=== PATIENT | male | born 2000 | race Caucasian/White ===

== ENCOUNTER 2023-03-02 11:14 | Outpatient (AMB) | payer OTHER, SELFPAY ==
--- NOTE | 2023-03-02 11:16 | A.OFFPC_ITS ---
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 He notes he was last evaluated by his former PCP a year and half ago. He does not recall the last time he had blood work done. He reports history of ADHD and notes was never treated. He states he does not want to treat his ADHD. He denies anxiety or depression. Not on prescription medications FH: No significant FH He reports very dry, peeling skin to his palms and soles of feet for the past 7 years. No itching. He has been using moisturizing lotions and Vaseline with minimal relief. He notes he has been smoking 2 blunts of marijuana dailhy for the past 3 years He states he vaped daily for 3 years and quit a week ago He states he has been drinking 2 shot glasses of vodka 2-3 times monthly for the past 1 year He notes that he is sexually active, in a monogamous relationship, and practices safe sex. [facility] Surgical History (Updated 03/02/23 @ 11:21 by Brett Carty CMA) No pertinent past surgical history Family History (Updated 03/02/23 @ 11:22 by Brett Carty CMA) Mother Mental health problem Father Mental health problem Other No pertinent family history Social History (Updated 03/02/23 @ 11:23 by Brett Carty CMA) Housing: Apartment Alcohol intake: current Alcohol intake frequency: a few times a month Alcohol type: hard liquor Patient Tobacco Use Status: Former Tobacco user (vape ) e-Cigarette/Vaping Use: Currently Using Substance Use Type: Marijuana service: No Current occupational status: employed Current occupation: [employer] Current occupational exposures/hazards: No Cognitive needs: No Hearing needs: No Vision needs: Yes Questionnaire PHQ-9 Over the last 2 weeks, how often have you been bothered by any of the following problems? 1. Little interest or pleasure in doing things: several days 2. Feeling down, depressed, or hopeless: not at all 3. Trouble falling or staying asleep, or sleeping too much: more than half the days 4. Feeling tired or having little energy: nearly every day 5. Poor appetite or overeating: not at all 6. Feeling bad about yourself - or that you are a failure or have let yourself or your family down: not at all 7. Trouble concentrating on things, such as reading the newspaper or watching television: not at all 8. Moving or speaking so slowly that other people could have noticed. Or the opposite - being so fidgety or restless that you have been moving around a lot more than usual: several days 9. Thoughts that you would be better off or of hurting yourself in some way: not at all Total score: 7 Depression Screening Interpretation: Positive 07756 - PHQ-9 Billing: Yes Source: Developed by Drs. Salo Garvin, Sofya Johnson, Yandel Dinh and colleagues, with an educational darwin from [employer]. Thrive Questionnaire Date Thrive assessed: 03/02/23 I am a: Patient What is your living situation today?: I have a steady place to live Within the past 12 months, did the food you bought not last and you didn't have the money to get more?: Never true Within the past 12 months, did you worry whether your food would run out before you got money to buy more?: Never true Do you have trouble paying for medicines?: No Do you have trouble getting transportation to medical appointments?: No Do you have trouble paying your heating and electricity bill?: No Do you have trouble taking care of your child, family member or friend?: No Do you have trouble with day-to-day activities such as bathing, preparing meals, shopping, managing finances, etc.?: No Are you currently unemployed and looking for a job?: No Are you interested in more education?: No Please select the resources that you would like help with: None Currently or been in a relationship where the following occur: no concerns reported AUDIT C Alcohol Use Questionnaire (AUDIT-C) 1. How often do you have a drink containing alcohol?: 2-4 times a month 2. How many drinks containing alcohol do you have on a typical day when you are drinking?: 1 or 2 3. How often do you have six or more drinks on one occasion?: Never Total Score: 2 VASQUEZ-7 AMB Questionnaire VASQUEZ-7 Date VASQUEZ - 7 assessed: 03/02/23 Feeling nervous, anxious, or on edge: 0 = Not at all Not being able to stop or control worryin = Not at all Worrying too much about different things: 0 = Not at all Trouble relaxin = Not at all Being so restless that it is hard to sit still: 0 = Not at all Becoming easily annoyed or irritable: 1 = Several days Feeling afraid as if something awful might happen: 0 = Not at all Total VASQUEZ-7 score (0-4 normal; 5-9 mild; 10-14 moderate; 15-21 severe): 1 Source: Developed by Drs. Salo Garvin, Sofya Johnson, Yandel Dinh and colleagues, with an educational darwin from [employer]. VASQUEZ-7 Assessment Billing VASQUEZ-7 Assessment Tool: VASQUEZ-7 Assessment 08455 Review of Systems Const Details: Denies chills, Denies fatigue, Denies fever(s), Denies headache(s) and Denies weakness HEENT Denies change in vision, Denies dizziness, Denies headache(s), Denies hearing loss, Denies nasal congestion, Denies sinus pain, Denies sinus pressure and Denies sore throat Card Denies chest pain, Denies lightheadedness, Denies dyspnea and Denies other (palpitations) Resp Denies cough, Denies dyspnea and Denies wheezing GI Denies abdominal pain, Denies melena, Denies hematochezia, Denies change in bowel habits, Denies dyspepsia and Denies nausea Denies hematuria and Denies dysuria Musc Denies abnormal gait, Denies myalgias, Denies arthralgias, Denies numbness and Denies tingling Skin/Breast Denies rash, Denies unusual bruising and Denies wounds Neuro Denies abnormal gait, Denies dizziness, Denies headache(s), Denies memory loss, Denies numbness, Denies Sensory deficit (Neuro), Denies tingling and Denies weakness Psych Denies anxiety, Denies depression and Denies memory loss Endo Denies cold intolerance, Denies fatigue, Denies heat intolerance, Denies polydipsia and Denies polyuria Zelal[place]/Lymph Denies easy bleeding and Denies easy bruising Aller/Immun Denies wheezing Physical exam (Primary Care) Vital Signs: Last Vital Signs Pulse 57 03/02/23 11:19 BP 118/68 03/02/23 11:19 Pulse Ox 97 03/02/23 11:19 BMI result Body Mass Index 23.1 Tobacco/Smoking Status: Tobacco use Status Tobacco use date assessed 03/02/23 03/02/23 11:27 Patient Tobacco Use Status Former Tobacco user (vape ) 03/02/23 11:27 e-Cigarette/Vaping Use Currently Using 03/02/23 11:27 PHQ-9: PHQ-9 Score PHQ-9: Total score 7 03/02/23 12:08 Depression Screening Interpretation: Positive Thrive Assessment: Date of Thrive Assessment Date Thrive assessed 03/02/23 03/02/23 11:27 Currently or been in a relationship where the following occur: no concerns reported Const Other: General: no acute distress, well developed, alert and awake Nutritional Appearance: well nourished Orientation/consciousness: patient oriented x3 HENMT Head: Yes normocephalic and Yes atraumatic Ears: hearing grossly normal bilaterally and TM's normal bilaterally General nose exam: Normal external nose present and Normal nares present Mouth: Normal oral and palatal mucosa present and moist mucous membranes Teeth and gingiva: dentition normal Throat: Yes oropharynx normal Eyes Pupils: Equal, round and reactive pupils present and Pupil accommodation reflex normal EOM: EOMs intact bilaterally Neck Neck: Yes normal visual inspection, Yes no lymphadenopathy and Yes trachea midline Thyroid: Thyroid normal Carotids: no bruits Lymphatic: no lymphadenopathy noted Chest Chest palpation & inspection: normal inspection of the chest Resp Effort & Inspection: normal respiratory effort Auscultation: clear to auscultation bilaterally Cardio Rate: regular rate Rhythm: regular rhythm Heart sounds: S1 normal heart sound present, S2 normal heart sound present, no gallops, no murmurs and no rubs Bruits: no abdominal aortic bruits and no carotid bruits GI Palpation (GI): No Abdominal aortic bruit present, Soft to palpation, nontender, No hepatosplenomegaly present and No Rebound tenderness present Auscultation: normal bowel sounds General: Yes no CVA tenderness Back/Spine/Pelvis Back: no CVA tenderness Cervical Spine: cervical ROM normal and No Cervical spine tenderness Thoracic/Lumbar Spine: thoraco-lumbar ROM normal, No pain with thoraco-lumbar ROM, No thoracic spinal tenderness and No lumbar spinal tenderness Skin General: warm and dry. Normal skin color. Normal skin turgor. Very dry, peeling, callous skin to the palms and soles of feet, skin is intact, no overt infection Lesions: no lesions Rashes: no rashes Trauma: no lacerations or abrasions Wounds: no wounds Nails: normal Neuro General: patient oriented x3, gait normal and CN's II-XI intact bilaterally Cranial nerves: Yes Equal, round and reactive pupils present Cognition (Neuro): normal cognition Gait exam (Neuro): Normal gait present Motor exam (neuro): 5/5 motor strength present throughout Sensory Exam: No Sensory deficit (Neuro) Deep tendon reflexes (DTR's): Right patellar reflex intensity grade: 2+ and Left patellar reflex intensity grade: 2+ Extrem General: Yes normal to inspection, No edema and No calf tenderness Psych Appearance: grossly normal Affect: normal affect Attitude: cooperative Thought process: Normal thought process present Assessment and Plan Assessment & Plan (1) Normal physical examination, routine: Code(s): Z00.00 - Encounter for general adult medical examination without abnormal findings Plan: No significant physical restrictions or limitations noted Advised to get blood work done and schedule a telehealth visit for labs review Return with concerns or symptoms Verbalized understanding and agreed with treatment plan (2) Callus: Code(s): L84 - Corns and callosities Plan: Reports very dry, peeling skin to his palms and soles of feet for the past 7 years. No itching. He has been using moisturizing lotions and Vaseline with minimal relief. Very dry, peeling, callous skin to the palms and soles of feet, skin is intact, no overt infection Continue to apply moisturizer lotion Dermatology referral made Follow-up with worsening or new signs and symptoms Verbalized understanding and agreed with plan. (3) Laboratory tests ordered as part of a complete physical exam (CPE): Code(s): Z00.00 - Encounter for general adult medical examination without abnormal findings Plan: Fasting labs ordered as part of a complete physical exam. Advised to fast for at least 10 hours before getting labs drawn. May drink water Verbalized understanding and agreed with treatment plan. Orders: Orders Comprehensive [place]. Panel Fast Today Z00.00 - Encounter for general adult medical examination without abnormal findings Lipid Panel Today Z00.00 - Encounter for general adult medical examination without abnormal findings TSH reflex Free T4 Today Z00.00 - Encounter for general adult medical examination without abnormal findings Complete Blood Count Auto Diff Today Z00.00 - Encounter for general adult medical examination without abnormal findings UA CC w/rflx Micro + Cult Today Z00.00 - Encounter for general adult medical examination without abnormal findings Referrals Dermatology Referral L84 - Corns and callosities Coding Level of Care Code New Pt Level 3 (93250) New Pt Prev Care 18-39yr([id number] Diagnoses Normal physical examination, routine Z00.00 Callus L84 Laboratory tests ordered as part of a complete physical exam (CPE) Z00.00 Additional Codes VASQUEZ-7 Assessment Billing - VASQUEZ-7 Assessment Tool: VASQUEZ-7 Assessment 18722 ([id number])
[2023-03-02 11:19] VITALS: BP 118/68; PULSE 57; O2SAT 97; BMI 23.1
== END 2023-03-02 12:12 | disposition home or self-care (01) ==
PROVIDERS: PCP Nurse Practitioner Family; Visit Provider Nurse Practitioner Family
DX: Z00.00 Encounter for general adult medical examination without abnormal findings (principal); L84 Corns and callosities
CPT/HCPCS: 99385

== ENCOUNTER 2023-04-07 08:58 | Outpatient (REF) | payer OTHER, SELFPAY ==
[2023-04-07 11:26] LABS: MANUAL DIFF FLAG NO
[2023-04-07 11:38] LABS: Basophils Percent Auto 0.5 % (0-2); Eosinophils Absolute Auto 0.1 X10*3/uL (0.0-0.4); Eosinophils Percent Auto 1.9 % (0-4); Hematocrit 45.6 % (42.0-52.0); Hemoglobin 16.3 g/dl (14.0-18.0); Imm Gran Abs Auto 0.01 X10*3/uL (0.00-0.03); Imm Gran Pct Auto 0.2 % (0.0-0.4); Lymphocytes Percent Auto 33.4 % (20-40); Mean Corpuscular HGB Conc 35.7 g/dl (31.0-36.0); Mean Corpuscular Hemoglobin 30.6 pg (27.0-33.0); Mean Corpuscular Volume 85.6 fL (80.0-98.0); Mean Platelet Volume 10.7 fL (9.4-12.4); Monocytes Absolute Auto 0.6 X10*3/uL (0.1-1.2); Monocytes Percent Auto 9.3 % (2-11); Neutrophils Absolute Auto 3.2 x10*3/uL (2.0-8.3); Neutrophils Percent Auto 54.7 % (45-73); Platelet Count 213 X10*3/uL (160-400); Red Blood Count 5.33 X10*6/uL (4.60-5.80); Red Cell Distribution Width 11.9 % (11.0-16.0); White Blood Count 5.9 X10*3/uL (4.8-10.8)
[2023-04-07 12:29] LABS: Alanine Aminotransferase 11 U/L (0-40); Albumin Level 4.5 g/dL (3.5-5.0); Alkaline Phosphatase 77 U/L (39-117); Anion Gap 9 (12-20); Aspartate Amino Transferase 12 U/L (5-37); Bilirubin Total 0.7 mg/dL (0.0-1.0); Blood Urea Nitrogen 18 mg/dL (9-16); Calcium 9.5 mg/dL (8.4-10.2); Carbon Dioxide 27 mmol/L (22-29); Chloride 108 mmol/L (96-108); Cholesterol 189 mg/dL (<200); Estimated Glomerular Filt Rate > 60; Glucose Fasting 94 mg/dL (60-99); HDL Cholesterol 40 mg/dL (>40); LDL Cholesterol Calculated 135 mg/dL (<100); Potassium 4.2 mmol/L (3.3-5.1); Sodium 140 mmol/L (135-145); Total Protein 6.9 g/dL (6.5-8.0); Triglycerides 73 mg/dL (<150)
[2023-04-07 12:31] LABS: TSH reflex Free T4 0.52 uIU/mL (0.32-4.0)
== END 2023-04-07 08:59 | disposition home or self-care (01) ==
LOC: HO.WFDLDS 08:58
PROVIDERS: Visit Provider Nurse Practitioner Family
DX: Z00.00 Encounter for general adult medical examination without abnormal findings (principal)
CPT/HCPCS: 36415; 80053; 80061; 84443; 85025

== ENCOUNTER 2024-01-15 12:51 | Outpatient (AMB) | payer OTHER, SELFPAY ==
[2024-01-15 13:03] VITALS: PULSE 88; O2SAT 98; BMI 22.4
--- NOTE | 2024-01-15 13:03 | MHC.OFFWIV ---
Intake Vital Signs 01/15/24 13:03 Height 5 ft 9 in Weight 152 lb BMI 22.4 Pulse 88 Pulse Source Pulse Oximeter Pulse Oximetry (%) 98 Oxygen Delivery Method Room Air Intake Visit Reasons: Abcsess on groin Patient Tobacco Use Status: Former Tobacco user (vape ) Allergies No Known Allergies Allergy (Verified 01/15/24 13:03) Medication List - Last Reconciled 01/15/24 by JOEL Juarez No Known Home Meds Do you need a note to return to daycare/school/sports/work: No HPI HPI Comments History of Present Illness Details Here today with concerns of swelling of a right lymph node in his groin. Associated with mild discomfort. He noted this about 1 week ago. It has improved since onset with no treatment. He was in his normal state of health. Upon ROS when asked about fever he states that he had some fevers a few weeks ago without any other symptoms. And these resolved on their own. He reports normal urination. Denies any concern for STD exposure. Denies any abdominal symptoms. [facility] Surgical History (Updated 03/02/23 @ 11:21 by Brett Carty [facility]) No pertinent past surgical history Family History (Updated 03/02/23 @ 11:22 by Brett Carty CMA) Mother Mental health problem Father Mental health problem Other No pertinent family history Social History (Updated 03/02/23 @ 11:23 by Brett Carty CMA) Housing: Apartment Alcohol intake: current Alcohol intake frequency: a few times a month Alcohol type: hard liquor Patient Tobacco Use Status: Former Tobacco user (vape ) e-Cigarette/Vaping Use: Currently Using Substance Use Type: Marijuana service: No Current occupational status: employed Current occupation: [employer] Current occupational exposures/hazards: No Cognitive needs: No Hearing needs: No Vision needs: Yes Review of Systems Const All systems reviewed & are unremarkable except as noted in HPI and below Physical Exam Male genitals images: 1. 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 However he did not want his pants or underwear lowered for the exam. Therefore I did not do an exam of the skin or the genitals. I was able to palpate inguinal adenopathy on the right hand side which is shotty. He has 1 isolated lymph node that is larger however it is nontender with palpation. Assessment & Plan Assessment & Plan (1) Inguinal adenopathy: Comment: Affecting the right side that started 1 week ago. Improved since onset. This could be related to shaving and sweating given the hot weather conditions. Given he denies constitutional symptoms other than fevers which were a few weeks ago I have advised for supportive care. Watch and wait. If he develops any fever, urinary, abdominal symptoms he should seek further assistance. Otherwise reassured. Code(s): R59.0 - Localized enlarged lymph nodes Plan: . Patient Instructions: Affecting the right side that started 1 week ago. Improved since onset. This could be related to shaving and sweating given the hot weather conditions. Given he denies constitutional symptoms other than fevers which were a few weeks ago I have advised for supportive care. Watch and wait. If he develops any fever, urinary, abdominal symptoms he should seek further assistance. Otherwise reassured. Coding Level of Care Code Est Pt Level 3 (05536) Diagnoses Inguinal adenopathy R59.0
== END 2024-01-15 14:25 | disposition home or self-care (01) ==
PROVIDERS: PCP Nurse Practitioner Family; Visit Provider Nurse Practitioner Family
DX: R59.0 Localized enlarged lymph nodes (principal)
CPT/HCPCS: 99213

== ENCOUNTER 2024-07-22 10:34 | Outpatient (AMB) | payer OTHER, SELFPAY ==
--- NOTE | 2024-07-22 10:36 | A.OFFVIS_ITS ---
Intake Visit Reasons: Cancer screening Referral Allergies No Known Allergies Allergy (Verified 01/15/24 13:03) PFSH Surgical History (Updated 03/02/23 @ 11:21 by Brett Carty CMA) No pertinent past surgical history Family History (Updated 03/02/23 @ 11:22 by Brett Carty CMA) Mother Mental health problem Father Mental health problem Other No pertinent family history Social History (Updated 03/02/23 @ 11:23 by Brett Carty CMA) Housing: Apartment Alcohol intake: current Alcohol intake frequency: a few times a month Alcohol type: hard liquor Patient Tobacco Use Status: Former Tobacco user (vape ) e-Cigarette/Vaping Use: Currently Using Substance Use Type: Marijuana service: No Current occupational status: employed Current occupation: [employer] Current occupational exposures/hazards: No Cognitive needs: No Hearing needs: No Vision needs: Yes Coding
--- NOTE | 2024-07-22 10:38 | MHC.PC.OV ---
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 Allergies No Known Allergies Allergy (Verified 07/22/24 10:49) Medication List - Last Reconciled 07/22/24 by Juwan Parada CNP No Known Home Meds Tobacco use date assessed: 07/22/24 Dental Screening Dental Screen Date: 07/22/24 Did you have a dental visit in the last 12 months?: Yes Did you have a dental problem in the last 6 months where you did not have access to dental care?: No Was dental information given to patient?: Patient has dentist HPI HPI Comments History of Present Illness Details 24-year-old male presents with complaints of of a lumps to his left groin and scrotum which have been present for the past 1.5 - 2 weeks. He notes initially mild pain with palpation but completely resolved. No constitutional symptoms. No urinary symptoms. He was evaluated at [facility] walk-in on 01/15/2024 for right groin discomfort and was diagnosed with enlarged lymph node of the right groin; supportive care was recommended. He currently denies lumps to the right groin. [facility] Surgical History (Updated 03/02/23 @ 11:21 by Brett Carty CMA) No pertinent past surgical history Family History (Updated 03/02/23 @ 11:22 by Brett Carty CMA) Mother Mental health problem Father Mental health problem Other No pertinent family history Social History (Updated 03/02/23 @ 11:23 by Brett Carty CMA) Housing: Apartment Alcohol intake: current Alcohol intake frequency: a few times a month Alcohol type: hard liquor Patient Tobacco Use Status: Former Tobacco user (vape ) e-Cigarette/Vaping Use: Currently Using Second Hand Smoke Exposure: No Substance Use Type: Marijuana service: No Current occupational status: employed Current occupation: [employer] Current occupational exposures/hazards: No Cognitive needs: No Hearing needs: No Vision needs: Yes Questionnaire PHQ-9 Over the last 2 weeks, how often have you been bothered by any of the following problems? 1. Little interest or pleasure in doing things: not at all 2. Feeling down, depressed, or hopeless: not at all 3. Trouble falling or staying asleep, or sleeping too much: several days 4. Feeling tired or having little energy: several days 5. Poor appetite or overeating: not at all 6. Feeling bad about yourself - or that you are a failure or have let yourself or your family down: not at all 7. Trouble concentrating on things, such as reading the newspaper or watching television: not at all 8. Moving or speaking so slowly that other people could have noticed. Or the opposite - being so fidgety or restless that you have been moving around a lot more than usual: not at all 9. Thoughts that you would be better off or of hurting yourself in some way: not at all Total score: 2 Depression Screening Interpretation: Negative Depression Screening Done: Yes 32445 - PHQ-9 Billing: Yes Source: Developed by Drs. Salo Garvin, Sofya Johnson, Yandel Dinh and colleagues, with an educational darwin from [email or web address]. Thrive Questionnaire Date Thrive assessed: 07/22/24 I am a: Patient What is your living situation today?: I have a steady place to live Within the past 12 months, did the food you bought not last and you didn't have the money to get more?: Never true Within the past 12 months, did you worry whether your food would run out before you got money to buy more?: Never true Do you have trouble paying for medicines?: No Do you have trouble getting transportation to medical appointments?: No Do you have trouble paying your heating and electricity bill?: No Do you have trouble taking care of your child, family member or friend?: No Do you have trouble with day-to-day activities such as bathing, preparing meals, shopping, managing finances, etc.?: No Are you currently unemployed and looking for a job?: No Are you interested in more education?: Yes Please select the resources that you would like help with: None Currently or been in a relationship where the following occur: No concerns reported THRIVE Score: 0 AUDIT C Alcohol Use Questionnaire (AUDIT-C) 1. How often do you have a drink containing alcohol?: Never Total Score: 0 VASQUEZ-7 AMB Questionnaire VASQUEZ-7 Date VASQUEZ - 7 assessed: 07/22/24 Feeling nervous, anxious, or on edge: 0 = Not at all Not being able to stop or control worryin = Not at all Worrying too much about different things: 0 = Not at all Trouble relaxin = Not at all Being so restless that it is hard to sit still: 0 = Not at all Becoming easily annoyed or irritable: 0 = Not at all Feeling afraid as if something awful might happen: 0 = Not at all Total VASQUEZ-7 score (0-4 normal; 5-9 mild; 10-14 moderate; 15-21 severe): 0 Source: Developed by Drs. Salo Garvin, Sofya Johnson, Yandel Dinh and colleagues, with an educational darwin from [email or web address]. VASQUEZ-7 Assessment Billing VASQUEZ-7 Assessment Tool: VASQUEZ-7 Assessment 49321 Review of Systems Const Details: Const Denies chills, Denies fatigue, Denies fever(s), Denies headache(s) and Denies weakness ENT Denies dizziness and Denies headache(s) Card Denies chest pain, Denies lightheadedness, Denies dyspnea and Denies other (Palpitations) Resp Denies cough, Denies dyspnea, Denies wheezing and Denies other ( shortness of breath) GI Denies abdominal pain, Denies melena, Denies hematochezia, Denies change in bowel habits, Denies dyspepsia and Denies nausea Reports as per HPI Musc Denies abnormal gait, Denies myalgias, Denies arthralgias, Denies numbness and Denies tingling Skin/Breast Denies rash, Denies unusual bruising and Denies wounds Neuro Denies abnormal gait, Denies dizziness, Denies headache(s), Denies memory loss, Denies numbness, Denies Sensory deficit (Neuro), Denies tingling and Denies weakness Psych Denies anxiety, Denies depression, Denies memory loss Endo Denies cold intolerance, Denies fatigue, Denies heat intolerance, Denies polydipsia and Denies polyuria Aller/Immun Denies wheezing Physical exam (Primary Care) Vital Signs: Last Vital Signs Temp 98.6 F 07/22/24 10:44 Pulse 67 07/22/24 10:44 Resp 16 07/22/24 10:44 BP 125/68 07/22/24 10:44 Pulse Ox 98 07/22/24 10:44 Oxygen Delivery Method Room Air 07/22/24 10:44 BMI result Body Mass Index 22.8 Tobacco/Smoking Status: Tobacco use Status Tobacco use date assessed 07/22/24 07/22/24 10:45 Patient Tobacco Use Status Former Tobacco user (vape ) 07/22/24 10:40 e-Cigarette/Vaping Use Currently Using 07/22/24 10:40 PHQ-9: PHQ-9 Score PHQ-9: Total score 2 07/22/24 10:45 Depression Screening Interpretation: Negative Thrive Assessment: Date of Thrive Assessment Date Thrive assessed 07/22/24 07/22/24 10:45 Currently or been in a relationship where the following occur: No concerns reported Const Other: General: no acute distress and well developed Nutritional Appearance: well nourished Orientation/consciousness: patient oriented x3 HENMT Head: Yes normocephalic and Yes atraumatic Eyes General: appearance normal, both eyes and all related structures Pupils: Equal, round and reactive pupils present EOM: EOMs intact bilaterally Resp Effort & Inspection: normal respiratory effort Auscultation: clear to auscultation bilaterally Cardio Rate: regular rate Rhythm: regular rhythm Heart sounds: S1 normal heart sound present, S2 normal heart sound present, no gallops, no murmurs and no rubs GI Palpation (GI): No Abdominal aortic bruit present, Soft to palpation, nontender, No hepatosplenomegaly present and No Rebound tenderness present Auscultation: normal bowel sounds General: Yes no CVA tenderness Back/Spine/Pelvis Back: no CVA tenderness Cervical Spine: cervical ROM normal and No Cervical spine tenderness Thoracic/Lumbar Spine: thoraco-lumbar ROM normal, No pain with thoraco-lumbar ROM, No thoracic spinal tenderness and No lumbar spinal tenderness Extrem General: Yes normal to inspection, No edema and No calf tenderness Skin General: warm and dry. Normal skin color. Normal skin turgor Lesions: Pea-sized, mobile lymph node to left groin, discomfort with palpation, no erythema or overt infection. Left scrotum with very bump, no drainage or overt infection. Right groin with normal exam Rashes: no rashes Trauma: no lacerations or abrasions Wounds: no wounds Nails: normal Neuro General: patient oriented x3, gait normal and no focal neuro deficit Cranial nerves: Yes Equal, round and reactive pupils present Cognition (Neuro): normal cognition Gait exam (Neuro): Normal gait present Sensory Exam: No Sensory deficit (Neuro) Psych Appearance: grossly normal Affect: normal affect Attitude: cooperative Thought process: Normal thought process present Coding Level of Care Code Est Pt Level 4 (90698) Diagnoses Inguinal adenopathy R59.0 Lesion of scrotum N50.9 Laboratory tests ordered as part of a complete physical exam (CPE) Z00.00 Additional Codes VASQUEZ-7 Assessment Billing - VASQUEZ-7 Assessment Tool: VASQUEZ-7 Assessment 40375 ([id number]) PHQ-9 - 10818 - PHQ-9 Billing: Yes ([id number]) Assessment & Plan Assessment & Plan (1) Inguinal adenopathy: Comment: left groin Code(s): R59.0 - Localized enlarged lymph nodes Category: Medical Plan: Pea-sized, mobile lymph node to left groin, discomfort with palpation, no erythema or overt infection. Right groin with normal exam. Supportive care recommended. Encouraged to apply warm compresses as needed. May take Tylenol ibuprofen for pain or discomfort. Follow-up for an extended physical exam and labs review or return sooner with redness, swelling, increased pain, drainage, fever, body aches. Verbalized understanding and agreed with the plan. (2) Lesion of scrotum: Code(s): N50.9 - Disorder of male genital organs, unspecified Category: Medical Plan: Left scrotum with very bump, no drainage or overt infection. Likely due to shaving. He shaves his genital with a razor. Encouraged to avoid shaving with a razor and use a clipper instead. Warm/cool compresses encouraged. Follow-up with worsening or new signs and symptoms. Verbalized understanding and agreed with the plan. (3) Laboratory tests ordered as part of a complete physical exam (CPE): Code(s): Z00.00 - Encounter for general adult medical examination without abnormal findings Category: Medical Plan: Fasting labs ordered as part of a complete physical exam. Advised to fast for at least 10 hours before getting labs drawn. May drink water Verbalized understanding and agreed with treatment plan. Orders: Orders Complete Blood Count Auto Diff Today Z00.00 - Encounter for general adult medical examination without abnormal findings Comprehensive [place]. Panel Fast Today Z00.00 - Encounter for general adult medical examination without abnormal findings Lipid Panel Today Z00.00 - Encounter for general adult medical examination without abnormal findings TSH reflex Free T4 Today Z00.00 - Encounter for general adult medical examination without abnormal findings UA CC w/rflx Micro + Cult Today Z00.00 - Encounter for general adult medical examination without abnormal findings
[2024-07-22 10:44] VITALS: BP 125/68; PULSE 67; RESP 16; TEMP 37; O2SAT 98; BMI 22.8
== END 2024-07-22 10:59 | disposition home or self-care (01) ==
PROVIDERS: PCP Nurse Practitioner Family; Visit Provider Nurse Practitioner Family
DX: R59.0 Localized enlarged lymph nodes (principal); N50.9 Disorder of male genital organs, unspecified; Z00.00 Encounter for general adult medical examination without abnormal findings

== ENCOUNTER → 2024-07-22 10:34 | Outpatient (BNVA) | payer OTHER, SELFPAY | PROVIDERS: PCP Nurse Practitioner Family; Visit Provider Nurse Practitioner Family | DX: R59.0 Localized enlarged lymph nodes (principal); N50.9 Disorder of male genital organs, unspecified | CPT/HCPCS: 96127; 99212 ==

== ENCOUNTER 2024-09-05 08:17 | Outpatient (REF) | payer OTHER, SELFPAY ==
[2024-09-05 11:32] LABS: Appearance Urine Turbid; Color Urine Yellow; Glucose Urine UA Negative (Negative); Leukocyte Esterase Urine Negative (Negative); Nitrite Urine Negative (Negative); PH 6.5 (5.0-9.0); Urine Blood Negative (Negative); Urine Ketones Negative (Negative); Urine Protein Negative (Neg-Trace)
== END 2024-09-05 08:18 | disposition home or self-care (01) ==
LOC: HO.WFDLDS 08:17
PROVIDERS: Visit Provider Nurse Practitioner Family
DX: Z00.00 Encounter for general adult medical examination without abnormal findings (principal)
CPT/HCPCS: 81003

== ENCOUNTER 2024-09-09 08:45 | Outpatient (REF) | payer OTHER, SELFPAY ==
[2024-09-09 11:08] LABS: MANUAL DIFF FLAG NO
[2024-09-09 11:13] LABS: Basophils Percent Auto 0.5 % (0-2); Eosinophils Absolute Auto 0.1 X10*3/uL (0.0-0.4); Eosinophils Percent Auto 1.4 % (0-4); Hematocrit 45.4 % (42.0-52.0); Hemoglobin 15.6 g/dl (14.0-18.0); Imm Gran Abs Auto 0.02 X10*3/uL (0.00-0.03); Imm Gran Pct Auto 0.2 % (0.0-0.4); Lymphocytes Absolute Auto 2.1 X10*3/uL (1.2-4.9); Lymphocytes Percent Auto 23.3 % (20-40); Mean Corpuscular HGB Conc 34.4 g/dl (31.0-36.0); Mean Corpuscular Hemoglobin 30.5 pg (27.0-33.0); Mean Corpuscular Volume 88.8 fL (80.0-98.0); Mean Platelet Volume 9.9 fL (9.4-12.4); Monocytes Absolute Auto 0.8 X10*3/uL (0.1-1.2); Monocytes Percent Auto 8.6 % (2-11); Neutrophils Absolute Auto 5.8 x10*3/uL (2.0-8.3); Platelet Count 225 X10*3/uL (160-400); Red Blood Count 5.11 X10*6/uL (4.60-5.80); Red Cell Distribution Width 11.9 % (11.0-16.0); White Blood Count 8.8 X10*3/uL (4.8-10.8)
[2024-09-09 11:32] LABS: Alanine Aminotransferase 19 U/L (0-40); Albumin Level 4.6 g/dL (3.5-5.0); Alkaline Phosphatase 78 U/L (39-117); Anion Gap 9 (12-20); Aspartate Amino Transferase 21 U/L (5-37); Bilirubin Total 0.4 mg/dL (0.0-1.0); Blood Urea Nitrogen 16 mg/dL (9-16); Calcium 9.2 mg/dL (8.4-10.2); Carbon Dioxide 26 mmol/L (22-29); Chloride 110 mmol/L (96-108); Cholesterol 189 mg/dL (<200); Estimated Glomerular Filt Rate > 60; Glucose Fasting 95 mg/dL (60-99); HDL Cholesterol 39 mg/dL (>40); LDL Cholesterol Calculated 133 mg/dL (<100); Sodium 141 mmol/L (135-145); Total Protein 7.4 g/dL (6.5-8.0); Triglycerides 88 mg/dL (<150)
[2024-09-09 11:49] LABS: TSH reflex Free T4 1.21 uIU/mL (0.32-4.0)
== END 2024-09-09 08:46 | disposition home or self-care (01) ==
LOC: HO.WFDLDS 08:45
PROVIDERS: Visit Provider Nurse Practitioner Family
DX: Z00.00 Encounter for general adult medical examination without abnormal findings (principal)
CPT/HCPCS: 36415; 80053; 80061; 84443; 85025

== ENCOUNTER 2024-09-23 12:40 | Outpatient (AMB) | payer OTHER, SELFPAY ==
--- NOTE | 2024-09-23 12:46 | MHC.PC.OV ---
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 Acute issue(s) - None Past Medical History - None Social History - Nonsmoker. Does not vape. Drinks 2 shots of vodka monthly. Denies recreational drug use - Has been making healthy dietary choices. Runs twice weekly. He has had difficulty falling asleep and maintaining sleep since he stopped smoking cannabis about 2 weeks ago; he sleeps an average of 2-3 hours. Melatonin has not been effective. - He is sexually active, in a monogamous relationship, and has no concern for STDs - He works as a [employer] Health maintenance - Last eye exam was less than a year ago with [facility] : normal - Last dental visit was almost a year ago; encouraged to schedule an appointment with his dentist for routine dental care. - Last tetanus vaccine unknown; received Tdap vaccine today - Has not been vaccinated for the flu this season; declines vaccination [facility] Surgical History (Updated 03/02/23 @ 11:21 by Brett Carty CMA) No pertinent past surgical history Family History (Updated 03/02/23 @ 11:22 by Brett Carty CMA) Mother Mental health problem Father Mental health problem Other No pertinent family history Social History (Updated 03/02/23 @ 11:23 by Brett Carty CMA) Housing: Apartment Alcohol intake: current Alcohol intake frequency: a few times a month Alcohol type: hard liquor Patient Tobacco Use Status: Former Tobacco user (vape ) e-Cigarette/Vaping Use: Former Use Second Hand Smoke Exposure: No Substance Use Type: Marijuana service: No Current occupational status: employed Current occupation: [employer] Current occupational exposures/hazards: No Cognitive needs: No Hearing needs: No Vision needs: Yes Questionnaire PHQ-9 Over the last 2 weeks, how often have you been bothered by any of the following problems? 1. Little interest or pleasure in doing things: not at all 2. Feeling down, depressed, or hopeless: not at all 3. Trouble falling or staying asleep, or sleeping too much: nearly every day 4. Feeling tired or having little energy: nearly every day 5. Poor appetite or overeating: not at all 6. Feeling bad about yourself - or that you are a failure or have let yourself or your family down: not at all 7. Trouble concentrating on things, such as reading the newspaper or watching television: not at all 8. Moving or speaking so slowly that other people could have noticed. Or the opposite - being so fidgety or restless that you have been moving around a lot more than usual: not at all 9. Thoughts that you would be better off or of hurting yourself in some way: not at all Total score: 6 Depression Screening Interpretation: Positive Depression Screening Done: Yes 03675 - PHQ-9 Billing: Yes Source: Developed by Drs. Salo Garvin, Sofya Johnson, Yandel Dinh and colleagues, with an educational darwin from [employer]. Thrive Questionnaire Date Thrive assessed: 09/23/24 I am a: Patient What is your living situation today?: I have a steady place to live Within the past 12 months, did the food you bought not last and you didn't have the money to get more?: Never true Within the past 12 months, did you worry whether your food would run out before you got money to buy more?: Never true Do you have trouble paying for medicines?: No Do you have trouble getting transportation to medical appointments?: No Do you have trouble paying your heating and electricity bill?: No Do you have trouble taking care of your child, family member or friend?: No Do you have trouble with day-to-day activities such as bathing, preparing meals, shopping, managing finances, etc.?: No Are you currently unemployed and looking for a job?: No Are you interested in more education?: No Please select the resources that you would like help with: None Currently or been in a relationship where the following occur: No concerns reported THRIVE Score: 0 AUDIT C Alcohol Use Questionnaire (AUDIT-C) 1. How often do you have a drink containing alcohol?: Monthly or less 2. How many drinks containing alcohol do you have on a typical day when you are drinking?: 1 or 2 3. How often do you have six or more drinks on one occasion?: Never Total Score: 1 Score Reviewed/Action Taken: Yes VASQUEZ-7 AMB Questionnaire VASQUEZ-7 Date VASQUEZ - 7 assessed: 09/23/24 Feeling nervous, anxious, or on edge: 0 = Not at all Not being able to stop or control worryin = Not at all Worrying too much about different things: 0 = Not at all Trouble relaxin = Not at all Being so restless that it is hard to sit still: 0 = Not at all Becoming easily annoyed or irritable: 0 = Not at all Feeling afraid as if something awful might happen: 0 = Not at all Total VASQUEZ-7 score (0-4 normal; 5-9 mild; 10-14 moderate; 15-21 severe): 0 Source: Developed by Drs. Salo Garvin, Sofya Johnson, Yandel Dinh and colleagues, with an educational darwin from [employer]. VASQUEZ-7 Assessment Billing VASQUEZ-7 Assessment Tool: VASQUEZ-7 Assessment 31799 Review of Systems Const Details: Denies chills, Denies fatigue, Denies fever(s), Denies headache(s) and Denies weakness HEENT Denies change in vision, Denies dizziness, Denies headache(s), Denies hearing loss, Denies nasal congestion, Denies sinus pain, Denies sinus pressure and Denies sore throat Card Denies chest pain, Denies lightheadedness, Denies dyspnea and Denies other (palpitations) Resp Denies cough, Denies dyspnea and Denies wheezing GI Denies abdominal pain, Denies melena, Denies hematochezia, Denies change in bowel habits, Denies dyspepsia and Denies nausea Denies hematuria and Denies dysuria Musc Denies abnormal gait, Denies myalgias, Denies arthralgias, Denies numbness and Denies tingling Skin/Breast Denies rash, Denies unusual bruising and Denies wounds Neuro Denies abnormal gait, Denies dizziness, Denies headache(s), Denies memory loss, Denies numbness, Denies Sensory deficit (Neuro), Denies tingling and Denies weakness Psych Denies anxiety, Denies depression and Denies memory loss Endo Denies cold intolerance, Denies fatigue, Denies heat intolerance, Denies polydipsia and Denies polyuria [place]alem/Lymph Denies easy bleeding and Denies easy bruising Aller/Immun Denies wheezing Physical exam (Primary Care) Vital Signs: Last Vital Signs Temp 97.8 F 09/23/24 12:55 Pulse 79 09/23/24 12:55 Resp 16 09/23/24 12:55 BP 130/68 09/23/24 13:16 Pulse Ox 98 09/23/24 12:55 Oxygen Delivery Method Room Air 09/23/24 12:55 BMI result Body Mass Index 22.4 Tobacco/Smoking Status: Tobacco use Status Tobacco use date assessed 09/23/24 09/23/24 12:58 Patient Tobacco Use Status Former Tobacco user (vape ) 09/23/24 12:47 e-Cigarette/Vaping Use Former Use 09/23/24 12:58 PHQ-9: PHQ-9 Score PHQ-9: Total score 6 09/23/24 13:40 Depression Screening Interpretation: Positive Thrive Assessment: Date of Thrive Assessment Date Thrive assessed 09/23/24 09/23/24 12:58 Currently or been in a relationship where the following occur: No concerns reported Const Other: General: no acute distress, well developed, alert and awake Nutritional Appearance: well nourished Orientation/consciousness: patient oriented x3 HENMT Head: Yes normocephalic and Yes atraumatic Ears: hearing grossly normal bilaterally and TM's normal bilaterally General nose exam: Normal external nose present and Normal nares present Mouth: Normal oral and palatal mucosa present and moist mucous membranes Teeth and gingiva: dentition normal Throat: Yes oropharynx normal Eyes Pupils: Equal, round and reactive pupils present and Pupil accommodation reflex normal EOM: EOMs intact bilaterally Neck Neck: Yes normal visual inspection, Yes no lymphadenopathy and Yes trachea midline Thyroid: Thyroid normal Carotids: no bruits Lymphatic: no lymphadenopathy noted Chest Chest palpation & inspection: normal inspection of the chest Resp Effort & Inspection: normal respiratory effort Auscultation: clear to auscultation bilaterally Cardio Rate: regular rate Rhythm: regular rhythm Heart sounds: S1 normal heart sound present, S2 normal heart sound present, no gallops, no murmurs and no rubs Bruits: no abdominal aortic bruits and no carotid bruits GI Palpation (GI): No Abdominal aortic bruit present, Soft to palpation, nontender, No hepatosplenomegaly present and No Rebound tenderness present Auscultation: normal bowel sounds General: Yes no CVA tenderness Back/Spine/Pelvis Back: no CVA tenderness Cervical Spine: cervical ROM normal and No Cervical spine tenderness Thoracic/Lumbar Spine: thoraco-lumbar ROM normal, No pain with thoraco-lumbar ROM, No thoracic spinal tenderness and No lumbar spinal tenderness Skin General: warm and dry. Normal skin color. Normal skin turgor Lesions: no lesions Rashes: no rashes Trauma: no lacerations or abrasions Wounds: no wounds Nails: normal Neuro General: patient oriented x3, gait normal and CN's II-XI intact bilaterally Cranial nerves: Yes Equal, round and reactive pupils present Cognition (Neuro): normal cognition Gait exam (Neuro): Normal gait present Motor exam (neuro): 5/5 motor strength present throughout Sensory Exam: No Sensory deficit (Neuro) Deep tendon reflexes (DTR's): Right patellar reflex intensity grade: 2+ and Left patellar reflex intensity grade: 2+ Extrem General: Yes normal to inspection, No edema and No calf tenderness Psych Appearance: grossly normal Affect: normal affect Attitude: cooperative Thought process: Normal thought process present Immunizations Boostrix Tdap 2.5 Lf unit-8 mcg-5 Lf/0.5 mL intramuscular syringe Performing Provider: Juwan Parada CNP Performing Location: [facility] [place] [facility] Administered by: Holly Vidal RN on 09/23/24 13:39 Dose Route Admin Location Dispensed Lot Number Expiration Date [facility] Head Athletic Trainer/Strength Coach 0.5 mL IM Left Deltoid 0.5 mL [id number] 11/16/26 [id number] Ticies VIS Given Date VIS Provided VIS Publication Date 09/23/24 Single Vaccine 21 Eligibility Eligibility Date Funding Source Not [facility] Eligible 09/23/24 Private Coding Level of Care Code Est Pt Prev Care 18-39y(03313) Diagnoses Normal physical examination, routine Z00.00 Dyslipidemia E78.5 Insomnia G47.00 Vaccine for tetanus toxoid Z23 Additional Codes VASQUEZ-7 Assessment Billing - VASQUEZ-7 Assessment Tool: VASQUEZ-7 Assessment 78399 ([id number]) PHQ-9 - 00498 - PHQ-9 Billing: Yes ([id number]) Assessment & Plan Assessment & Plan (1) Normal physical examination, routine: Code(s): Z00.00 - Encounter for general adult medical examination without abnormal findings Category: Medical Plan: No significant functional limitations noted. (2) Dyslipidemia: Code(s): E78.5 - Hyperlipidemia, unspecified Category: Medical Plan: Recent LDL level is elevated, 133 and HDL level is slightly low, 39. Advised to limit foods high in saturated fat and avoid foods high in trans fat. Routine exercise encouraged. Fast for 10-12 hours, may drink water, and perform lipid panel blood work 2-3 days before next visit. Follow-up for telehealth visit for labs review in 3 months or sooner with symptoms or concerns. Verbalized understanding and agreed with treatment plan. (3) Insomnia: Code(s): G47.00 - Insomnia, unspecified Category: Medical Plan: He has been experiencing difficulty falling asleep and maintaining sleep season stopped smoking cannabis about 2 weeks ago. Melatonin has not been effective. He sleeps an average of 3-6 hours. Instructed on sleep hygiene, including exercise. Follow-up with worsening or new symptoms. Verbalized understanding and agreed with treatment plan. (4) Vaccine for tetanus toxoid: Code(s): Z23 - Encounter for immunization Category: Medical Plan: He is unsure of his last tetanus vaccine. He is a high risk due to his occupation as a [employer]ras[employer]. Tdap vaccine administered during this visit. Orders: Orders TDaP Immunization 09/23/24 Z23 - Encounter for immunization Lipid Panel 3 Months E78.5 - Hyperlipidemia, unspecified
[2024-09-23 12:55] VITALS: BP 138/72; PULSE 79; RESP 16; TEMP 36.6; O2SAT 98; BMI 22.4
[2024-09-23 13:16] VITALS: BP 130/68
== END 2024-09-23 13:37 | disposition home or self-care (01) ==
PROVIDERS: PCP Nurse Practitioner Family; Visit Provider Nurse Practitioner Family
DX: Z00.00 Encounter for general adult medical examination without abnormal findings (principal); E78.5 Hyperlipidemia, unspecified; G47.00 Insomnia, unspecified; Z23 Encounter for immunization

== ENCOUNTER → 2024-09-23 12:40 | Outpatient (BNVA) | payer OTHER, SELFPAY | PROVIDERS: PCP Nurse Practitioner Family; Visit Provider Nurse Practitioner Family | DX: Z00.00 Encounter for general adult medical examination without abnormal findings (principal); Z23 Encounter for immunization; E78.5 Hyperlipidemia, unspecified; G47.00 Insomnia, unspecified | CPT/HCPCS: 90471; 90715; 96127; 99395 ==

== ENCOUNTER 2024-12-24 09:19 | Outpatient (AMB) | payer OTHER, SELFPAY ==
--- NOTE | 2024-12-24 09:27 | MHC.PC.OV ---
Vital Signs 12/24/24 09:33 Height 5 ft 9 in Weight 169 lb BMI 25.0 BP 117/59 L Blood Pressure Location Lt brachial Position Sitting Respiration 16 Pulse 66 Pulse Source Pulse Oximeter Temp 98.3 F Temp Source Oral Pulse Oximetry (%) 98 Oxygen Delivery Method Room Air Intake Visit Reasons: 3 mos dyslipidemia Intake Note: patient here for 3 month follow up for dyslipidemia c/o having sleeping issues Bus Attendant Required: No Allergies No Known Allergies Allergy (Verified 12/24/24 09:38) Medication List - Last Reconciled 12/24/24 by Juwan Parada CNP No Known Home Meds Tobacco use date assessed: 12/24/24 Dental Screening Dental Screen Date: 12/24/24 Did you have a dental visit in the last 12 months?: Yes Did you have a dental problem in the last 6 months where you did not have access to dental care?: No Was dental information given to patient?: Patient has dentist HPI HPI Comments History of Present Illness Details 24-year-old male presents with complaints of poor sleep. He has had difficulty falling asleep and maintaining sleep since he stopped smoking cannabis about 3 months ago; he sleeps an average of 2-3 hours. Melatonin helps him fall asleep but does not maintain sleep. He consumes cannabis edibles with average sleep of 6-7 hours. He is active but does not exercise. 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 He is unsure whether he snores and his partner has not mention that he snores. He denies anxiety or depression. No acute symptoms at this time. He is due for dyslipidemia follow-up but did not get lipid panel blood work done. [facility] Surgical History (Updated 03/02/23 @ 11:21 by Brett Carty CMA) No pertinent past surgical history Family History (Updated 03/02/23 @ 11:22 by Brett Carty CMA) Mother Mental health problem Father Mental health problem Other No pertinent family history Social History (Updated 03/02/23 @ 11:23 by Brett Carty CMA) Housing: Apartment Alcohol intake: current Alcohol intake frequency: a few times a month Alcohol type: hard liquor Patient Tobacco Use Status: Former Tobacco user (vape ) e-Cigarette/Vaping Use: Former Use Second Hand Smoke Exposure: No Substance Use Type: Marijuana service: No Current occupational status: employed Current occupation: [employer] Current occupational exposures/hazards: No Cognitive needs: No Hearing needs: No Vision needs: Yes Questionnaire PHQ-9 Over the last 2 weeks, how often have you been bothered by any of the following problems? 1. Little interest or pleasure in doing things: not at all 2. Feeling down, depressed, or hopeless: not at all 3. Trouble falling or staying asleep, or sleeping too much: more than half the days 4. Feeling tired or having little energy: several days 5. Poor appetite or overeating: not at all 6. Feeling bad about yourself - or that you are a failure or have let yourself or your family down: not at all 7. Trouble concentrating on things, such as reading the newspaper or watching television: not at all 8. Moving or speaking so slowly that other people could have noticed. Or the opposite - being so fidgety or restless that you have been moving around a lot more than usual: not at all 9. Thoughts that you would be better off or of hurting yourself in some way: not at all Total score: 3 Depression Screening Interpretation: Negative Depression Screening Done: Yes Source: Developed by Drs. Salo Garvin, Sofya Johnson, Yandel Dinh and colleagues, with an educational darwin from [employer]. Thrive Questionnaire Date Thrive assessed: 09/09/24 I am a: Patient What is your living situation today?: I have a steady place to live Within the past 12 months, did the food you bought not last and you didn't have the money to get more?: Never true Within the past 12 months, did you worry whether your food would run out before you got money to buy more?: Never true Do you have trouble paying for medicines?: No Do you have trouble getting transportation to medical appointments?: No Do you have trouble paying your heating and electricity bill?: No Do you have trouble taking care of your child, family member or friend?: No Do you have trouble with day-to-day activities such as bathing, preparing meals, shopping, managing finances, etc.?: No Are you currently unemployed and looking for a job?: No Are you interested in more education?: No Please select the resources that you would like help with: None Currently or been in a relationship where the following occur: No concerns reported THRIVE Score: 0 VASQUEZ-7 AMB Questionnaire VASQUEZ-7 Date VASQUEZ - 7 assessed: 09/23/24 Source: Developed by Drs. Salo Garvin, Sofya Johnson, Yandel Dinh and colleagues, with an educational darwin from [employer]. Review of Systems Const Details: Const Denies chills, Denies fatigue, Denies fever(s), Denies headache(s) and Denies weakness ENT Denies dizziness and Denies headache(s) Card Denies chest pain, Denies lightheadedness, Denies dyspnea and Denies other (Palpitations) Resp Denies cough, Denies dyspnea, Denies wheezing and Denies other ( shortness of breath) GI Denies abdominal pain, Denies melena, Denies hematochezia, Denies change in bowel habits, Denies dyspepsia and Denies nausea Denies hematuria and Denies dysuria Musc Denies abnormal gait, Denies myalgias, Denies arthralgias, Denies numbness and Denies tingling Skin/Breast Denies rash, Denies unusual bruising and Denies wounds Neuro Denies abnormal gait, Denies dizziness, Denies headache(s), Denies memory loss, Denies numbness, Denies Sensory deficit (Neuro), Denies tingling and Denies weakness Psych Denies anxiety, Denies depression, Denies memory loss Endo Denies cold intolerance, Denies fatigue, Denies heat intolerance, Denies polydipsia and Denies polyuria Aller/Immun Denies wheezing Physical exam (Primary Care) Vital Signs: Last Vital Signs Temp 98.3 F 12/24/24 09:33 Pulse 66 12/24/24 09:33 Resp 16 12/24/24 09:33 BP 117/59 L 12/24/24 09:33 Pulse Ox 98 12/24/24 09:33 Oxygen Delivery Method Room Air 12/24/24 09:33 BMI result Body Mass Index 25.0 Tobacco/Smoking Status: Tobacco use Status Tobacco use date assessed 12/24/24 12/24/24 09:34 Patient Tobacco Use Status Former Tobacco user (vape ) 12/24/24 09:27 e-Cigarette/Vaping Use Former Use 12/24/24 09:27 PHQ-9: PHQ-9 Score PHQ-9: Total score 3 12/24/24 09:36 Depression Screening Interpretation: Negative Thrive Assessment: Date of Thrive Assessment Date Thrive assessed 09/09/24 12/24/24 09:27 Currently or been in a relationship where the following occur: No concerns reported Const Other: General: no acute distress and well developed Nutritional Appearance: well nourished Orientation/consciousness: patient oriented x3 [facility] Head: Yes normocephalic and Yes atraumatic Eyes General: appearance normal, both eyes and all related structures Pupils: Equal, round and reactive pupils present EOM: EOMs intact bilaterally Resp Effort & Inspection: normal respiratory effort Auscultation: clear to auscultation bilaterally Cardio Rate: regular rate Rhythm: regular rhythm Heart sounds: S1 normal heart sound present, S2 normal heart sound present, no gallops, no murmurs and no rubs GI Palpation (GI): No Abdominal aortic bruit present, Soft to palpation, nontender, No hepatosplenomegaly present and No Rebound tenderness present Auscultation: normal bowel sounds General: Yes no CVA tenderness Back/Spine/Pelvis Back: no CVA tenderness Cervical Spine: cervical ROM normal and No Cervical spine tenderness Thoracic/Lumbar Spine: thoraco-lumbar ROM normal, No pain with thoraco-lumbar ROM, No thoracic spinal tenderness and No lumbar spinal tenderness Extrem General: Yes normal to inspection, No edema and No calf tenderness Skin General: warm and dry. Normal skin color. Normal skin turgor Neuro General: patient oriented x3, gait normal and no focal neuro deficit Cranial nerves: Yes Equal, round and reactive pupils present Cognition (Neuro): normal cognition Gait exam (Neuro): Normal gait present Sensory Exam: No Sensory deficit (Neuro) Psych Appearance: grossly normal Affect: normal affect Attitude: cooperative Thought process: Normal thought process present Coding Level of Care Code Est Pt Level 3 (51068) Diagnoses Insomnia G47.00 Assessment & Plan Assessment & Plan (1) Insomnia: Code(s): G47.00 - Insomnia, unspecified Category: Medical Plan: He has had difficulty falling asleep and maintaining sleep since he stopped smoking cannabis about 3 months ago; he sleeps an average of 2-3 hours. Melatonin helps him fall asleep but does not maintain sleep. He consumes cannabis edibles with average sleep of 6-7 hours. He is active but does not exercise. 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 He is unsure whether he snores and his partner has not mention that he snores. He denies anxiety or depression. Instructed on sleep hygiene. Routine physical exercise or cardio encouraged. Encouraged to get input from his partner whether he snores. Perform fasting lipid panel blood work and follow-up for a telehealth visit for dyslipidemia. Verbalized understanding and agreed with the plan.
[2024-12-24 09:33] VITALS: BP 117/59; PULSE 66; RESP 16; TEMP 36.8; O2SAT 98; BMI 25.0
== END 2024-12-24 11:57 | disposition home or self-care (01) ==
PROVIDERS: PCP Nurse Practitioner Family; Visit Provider Nurse Practitioner Family
DX: G47.00 Insomnia, unspecified (principal)

== ENCOUNTER → 2024-12-24 09:19 | Outpatient (BNVA) | payer OTHER, SELFPAY | PROVIDERS: PCP Nurse Practitioner Family; Visit Provider Nurse Practitioner Family | DX: G47.00 Insomnia, unspecified (principal); E78.5 Hyperlipidemia, unspecified | CPT/HCPCS: 99212 ==

== ENCOUNTER 2025-05-13 13:00 | Outpatient (AMB) | payer OTHER, SELFPAY ==
--- NOTE | 2025-05-13 13:01 | A.OFFPC_ITS ---
Vital Signs 05/13/25 13:07 Height 5 ft 9 in Weight 162 lb 8 oz BMI 24.0 BP 111/58 L Blood Pressure Location Lt brachial Position Sitting Respiration 16 Pulse 76 Pulse Source Pulse Oximeter Temp 97.7 F Temp Source Oral Pulse Oximetry (%) 98 Oxygen Delivery Method Room Air Intake Visit Reasons: Senior Physician Referral Intake Note: patient here to request a Dermatology referral. 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 Allergies No Known Allergies Allergy (Verified 05/13/25 13:19) Medication List - Last Reconciled 05/13/25 by Juwan Parada CNP amoxicillin 875 mg PO BID Tobacco use date assessed: 05/13/25 Dental Screening Dental Screen Date: 05/13/25 Did you have a dental visit in the last 12 months?: Yes Did you have a dental problem in the last 6 months where you did not have access to dental care?: No Was dental information given to patient?: Patient has dentist HPI HPI Comments History of Present Illness Details 24-year-old male presents for dermatolog y for facial acne which are sometimes painful; ongoing for the past 3 months; notes it maybe be stress induced. He has h/o of acne since his teenage years. [facility] Surgical History (Updated 03/02/23 @ 11:21 by Brett Carty CMA) No pertinent past surgical history Family History (Updated 03/02/23 @ 11:22 by Brett Carty CMA) Mother Mental health problem Father Mental health problem Other No pertinent family history Social History (Updated 03/02/23 @ 11:23 by Brett Carty CMA) Housing: Apartment Alcohol intake: current Alcohol intake frequency: a few times a month Alcohol type: hard liquor Patient Tobacco Use Status: Former Tobacco user (vape ) e-Cigarette/Vaping Use: Former Use Second Hand Smoke Exposure: No Substance Use Type: Marijuana service: No Current occupational status: employed Current occupation: [employer] Current occupational exposures/hazards: No Cognitive needs: No Hearing needs: No Vision needs: Yes Questionnaire Thrive Questionnaire Date Thrive assessed: 09/09/24 I am a: Patient What is your living situation today?: I have a steady place to live Within the past 12 months, did the food you bought not last and you didn't have the money to get more?: Never true Within the past 12 months, did you worry whether your food would run out before you got money to buy more?: Never true Do you have trouble paying for medicines?: No Do you have trouble getting transportation to medical appointments?: No Do you have trouble paying your heating and electricity bill?: No Do you have trouble taking care of your child, family member or friend?: No Do you have trouble with day-to-day activities such as bathing, preparing meals, shopping, managing finances, etc.?: No Are you currently unemployed and looking for a job?: No Are you interested in more education?: No Please select the resources that you would like help with: None Currently or been in a relationship where the following occur: No concerns reported THRIVE Score: 0 VASQUEZ-7 AMB Questionnaire VASQUEZ-7 Date VASQUEZ - 7 assessed: 09/23/24 Source: Developed by Drs. Salo Garvin, Sofya Johnson, Yandel Dinh and colleagues, with an educational darwin from [email or web address]. Review of Systems Const Details: Const Denies chills, Denies fatigue, Denies fever(s), Denies headache(s) and Denies weakness ENT Denies dizziness and Denies headache(s) Card Denies chest pain, Denies lightheadedness, Denies dyspnea and Denies other (Palpitations) Resp Denies cough, Denies dyspnea, Denies wheezing and Denies other ( shortness of breath) GI Denies abdominal pain, Denies melena, Denies hematochezia, Denies change in bowel habits, Denies dyspepsia and Denies nausea Denies hematuria and Denies dysuria Musc Denies abnormal gait, Denies myalgias, Denies arthralgias, Denies numbness and Denies tingling Skin/Breast Reports as per HPI Neuro Denies abnormal gait, Denies dizziness, Denies headache(s), Denies memory loss, Denies numbness, Denies Sensory deficit (Neuro), Denies tingling and Denies weakness Psych Denies anxiety, Denies depression, Denies memory loss Endo Denies cold intolerance, Denies fatigue, Denies heat intolerance, Denies polydipsia and Denies polyuria Aller/Immun Denies wheezing Physical exam (Primary Care) Vital Signs: Last Vital Signs Temp 97.7 F 05/13/25 13:07 Pulse 76 05/13/25 13:07 Resp 16 05/13/25 13:07 BP 111/58 L 05/13/25 13:07 Pulse Ox 98 05/13/25 13:07 Oxygen Delivery Method Room Air 05/13/25 13:07 BMI result Body Mass Index 24.0 Tobacco/Smoking Status: Tobacco use Status Tobacco use date assessed 05/13/25 05/13/25 13:10 Patient Tobacco Use Status Former Tobacco user (vape ) 05/13/25 13:04 e-Cigarette/Vaping Use Former Use 05/13/25 13:04 Thrive Assessment: Date of Thrive Assessment Date Thrive assessed 09/09/24 05/13/25 13:04 Currently or been in a relationship where the following occur: No concerns reported Const Other: General: no acute distress and well developed Nutritional Appearance: well nourished Orientation/consciousness: patient oriented x3 HENMT Head: Yes normocephalic and Yes atraumatic Eyes General: appearance normal, both eyes and all related structures Pupils: Equal, round and reactive pupils present EOM: EOMs intact bilaterally Resp Effort & Inspection: normal respiratory effort Auscultation: clear to auscultation bilaterally Cardio Rate: regular rate Rhythm: regular rhythm Heart sounds: S1 normal heart sound present, S2 normal heart sound present, no gallops, no murmurs and no rubs GI Palpation (GI): No Abdominal aortic bruit present, Soft to palpation, nontender, No hepatosplenomegaly present and No Rebound tenderness present Auscultation: normal bowel sounds General: Yes no CVA tenderness Back/Spine/Pelvis Back: no CVA tenderness Cervical Spine: cervical ROM normal and No Cervical spine tenderness Thoracic/Lumbar Spine: thoraco-lumbar ROM normal, No pain with thoraco-lumbar ROM, No thoracic spinal tenderness and No lumbar spinal tenderness Extrem General: Yes normal to inspection, No edema and No calf tenderness Skin General: warm and dry. Normal skin color. Normal skin turgor Lesions: Maculopapular rash without pustules to majority of his face Rashes: no rashes Trauma: no lacerations or abrasions Wounds: no wounds Nails: normal Neuro General: patient oriented x3, gait normal and no focal neuro deficit Cranial nerves: Yes Equal, round and reactive pupils present Cognition (Neuro): normal cognition Gait exam (Neuro): Normal gait present Sensory Exam: No Sensory deficit (Neuro) Psych Appearance: grossly normal Affect: normal affect Attitude: cooperative Thought process: Normal thought process present Coding Level of Care Code Est Pt Level 4 (13119) Diagnoses Acne L70.9 Assessment & Plan Assessment & Plan (1) Acne: Code(s): L70.9 - Acne, unspecified Category: Medical Plan: Maculopapular rash without pustules to majority of his face. Benzol peroxide as prescribed. Instructed on stress reduction techniques, including routine physical exercise. Referred to food broker. Perform fasting lipid panel blood work and follow-up for telehealth visit as planned. Follow-up as needed. Verbalized understanding and agreed with the plan. Medications: New benzoyl peroxide 10% (Acne Treatment (benzoyl peroxide)) 1 appl topical BID 42.5 grams 1RF
[2025-05-13 13:07] VITALS: BP 111/58; PULSE 76; RESP 16; TEMP 36.5; O2SAT 98; BMI 24.0
== END 2025-05-13 13:27 | disposition home or self-care (01) ==
LOC: HO.HMCFM 13:01
PROVIDERS: PCP Nurse Practitioner Family; Visit Provider Nurse Practitioner Family
DX: L70.9 Acne, unspecified (principal)

== ENCOUNTER → 2025-05-13 13:00 | Outpatient (BNVA) | payer OTHER, SELFPAY | PROVIDERS: PCP Nurse Practitioner Family; Visit Provider Nurse Practitioner Family | DX: L70.9 Acne, unspecified (principal) | CPT/HCPCS: 99212 ==